=== PATIENT | male | born 1945 | race Caucasian/White ===

== ENCOUNTER 2016-05-11 10:22 | Outpatient (CLI) | payer OTHER ==
[2016-03-25 18:45] VITALS: BP 136/69
[2016-05-11 10:47] LABS: MEAN CORPUSCULAR HEMOGLOBIN 29.1 pg (28.0-34.0)
[2016-05-11 11:05] LABS: MONOCYTES % 1 % (0-11); SEGMENTED NEUTROPHILS % 92 % (39-79)
[2016-05-11 15:24] LABS: TOTAL PROTEIN 5.2 g/dL (6.0-8.5)
== END 2016-05-11 10:32 ==
LOC: LAB 10:22
PROVIDERS: ATTEND Internal Medicine Gastroenterology
DX: K74.60 Unspecified cirrhosis of liver (principal)
CPT/HCPCS: 36415; 80053; 85025

== ENCOUNTER 2016-05-20 09:57 | Observation (INO) | payer OTHER ==
[2016-05-20 10:14] LABS: EOSINOPHILS % 1.1 % (0.0-6.8); LYMPHOCYTES # 0.6 # k/uL (0.6-4.0); MEAN CORPUSCULAR HEMOGLOBIN 29.5 pg (28.0-34.0); MONOCYTES # 0.2 # k/uL (0.0-0.9); MONOCYTES % 4.1 % (0.0-11.0); NEUTROPHILS # 4.8 # k/uL (1.4-7.7)
[2016-05-20 10:26] LABS: eGFR (African) 11; eGFR (Non-African) 9
--- NOTE | 2016-05-20 17:27 | History and Physical Report ---
History of Present Illnes - History of Present Illness Reason for Visit: dehydration History of Present Illness: 70yo white male with a history of liver failure with ascites. He recently seen by Dr Slaughter and was found to be dehydrated with a creatinine in the 5s. He has given 1 liter of NS and advised to try to drink more. Patient is on a 2gm Na restricted diet and 2000ml fluid restriction. His spouse states that he has not been eating or drinking enough to meet his restriction limits. Has been trying to get him to eat more. He has been losing muscle mass and states that he has been getting weaker. He has been somewhat depressed but has no suicidal thoughts. Patients ascites has been stable with stable abd girth. Patient has been having some pedal edema and has been having some weeping in the RLE. - Past Medical History Hepatobiliary: Cirrhosis (EtOHic liver failure. ) Psych: Depression - Past Surgical History Past Surgical History: Other (ORIF right hip fracture, cataaract extraction OU, 3 back surgeries), Total Knee Replacement (left) - Past Family History Mother Family History: (96yo COPD) Father Family History: CAD, (60yo ) - Past Social History Smoke: Quit Alcohol: None (use to drink moderately) Drugs: None Lives: With Family Domestic Violence: Negative - Health Maintenance Health Maintenance: Influenza Vaccine. denies: Cholesterol, Tetanus Influenza Vaccine: Current for this Influenza Season Pneumonia Vaccine: Yes Resuscitation Status: limited code - Unable to Obtain History Unable to Obtain: No Review of Systems - Review of Systems Constitutional: Weakness, Malaise. negative: Fever, Chills Eyes: negative: pain, vision change ENT: negative: Ear Pain, Ear Discharge, Nose Discharge, Nose Congestion, Throat Pain, Throat Swelling Respiratory: Cough, Dry, Shortness of Breath (mild), SOB with Excertion. negative: Hemoptysis, Wheezing Cardiovascular: Orthopnea (mild). negative: Chest Pain, Palpitations Gastrointestinal: Other (marked ascites). negative: Nausea, Vomiting, Abdominal Pain, Diarrhea, Melena, Hematochezia Genitourinary: negative: Dysuria, Frequency Musculoskeletal: Back Pain Skin: negative: Rash, Lesions Neurological: Weakness (generalized). negative: Numbness, Seizures - Medications/Allergies Allergies/Adverse Reactions: Allergies Allergy/AdvReac Type Severity Reaction Status Date / Time No Known Allergies Allergy Verified 05/20/16 17:02 Home Medications: Home Medications Aspirin [Marybel] 81 mg PO DAILY 05/20/16 Bethanechol Chloride [Urecholine] 25 mg PO AC30 05/20/16 Citalopram Hydrobromide [Citalopram HBr] 20 mg PO D 05/20/16 Furosemide [Lasix] 20 mg PO DAILY 05/20/16 Omeprazole [Prilosec] 40 mg PO 717 05/20/16 Spironolactone [Aldactone] 50 mg PO DAILY 05/20/16 Tamsulosin HCl [Flomax] 0.4 mg PO [id number] 05/20/16 Tramadol HCl [Ultram] 50 mg PO TID PRN 05/20/16 Current Inpatient Medications: Current Inpatient Medications Sodium Chloride (Normal Saline) 1,000 mls @ 1,000 mls/hr IV Q10H KAYLA Sodium Chloride (Normal Saline) 1,000 mls @ 125 mls/hr IV .Q10H KAYLA Sodium Chloride (Normal Saline Flush) 3 ml IV BID KAYLA Exam - Exam General: Alert, Oriented to Person, Oriented to Place, Oriented to Time, Cooperative, No acute distress HEENT: Atraumatic, Decreased Hearing Acuity. No: Mouth Mucous membr. moist/ [place] (dry), Nose Mucous membr. moist/[place] (ry) Neck: Normal Range of Motion, Lymphadenopathy. No: Stridor, Rigidity Carotids: WNL Thyroid: WNL Lungs: Clear to auscultation, Normal air movement, Speaks full Sentences. No: Wheezes, Rales, Rhonchi Cardiovascular: Regular rate, Normal S1, Normal S2, No murmurs. No: Gallops, Rubs Abdomen: Normal bowel sounds, Soft, No tenderness, Other (marked ascites), Hepatomegaly Integumentary: Normal, [place], Warm Extremities: No clubbing, Other (3 plus edema) Neurological: Normal speech, Strength Equal Bilat, Normal tone, Sensation intact , Cranial nerves 3-12 NL Psych/Mental Status: Mental status NL, Appropriate Affect, Intact Judgment. No : Mood NL (depressed) - Laboratory Results Laboratory Results: Laboratory Results 05/20/16 05/20/16 10:00 10:00 WBC 5.90 RBC 3.86 L Hgb 11.4 L Hct 36.2 L MCV 93.6 MCH 29.5 MCHC 31.5 RDW 13.9 Plt Count 74 L Neut % (Auto) 82.3 H Lymph % (Auto) 10.6 L [place] % (Auto) 4.1 Eos % (Auto) 1.1 Baso % (Auto) 0.0 Neut # 4.8 Lymph # 0.6 [place] # 0.2 Eos # 0.1 Baso # 0.0 Reactive Lymphs % 1.9 Reactive Lymphs # 0.1 Sodium 130 L Potassium 3.6 Chloride 94 L Carbon Dioxide 23 BUN 74 H Creatinine 6.4 H Est GFR ( Amer) 11 L Est GFR (Non-Af Amer) 9 L Glucose 104 H Calcium 8.1 L Total Bilirubin 1.1 AST 27 ALT 14 Alkaline Phosphatase 156 H Total Protein 5.3 L Albumin 2.9 L Assessment/Plan - Assessment/Plan (1) Dehydration Status: Acute Current Visit: Yes Assessment: BUN and Creatinine are elevated (2) Cirrhosis Status: Chronic Current Visit: Yes Qualifiers: Hepatic cirrhosis type: alcoholic cirrhosis Ascites presence: with ascites Qualified Code(s): K70.31 - Alcoholic cirrhosis of liver with ascites (3) Liver failure Status: Chronic Current Visit: Yes Qualifiers: Liver failure chronicity: chronic Hepatic coma status: without hepatic coma Qualified Code(s): K72.10 - Chronic hepatic failure without coma Comment: Gilbert's syndrome (4) Failure to thrive Status: Acute Current Visit: Yes Assessment: Patient is losing lean muscle mass (5) Depression Status: Acute Current Visit: Yes Qualifiers: Psychotic features: without psychotic features VTE Assessment - RISK FACTOR SCORE VTE RISK FACTOR SCORES: AGE OVER 60 YEARS, LEG SWELLING, ULCERS, VARICOSE VEINS - RISK VTE MODERATE RISK: SCORE OF 2 (RISK PROXIMAL DVT 2-4%) PROPHYAXIS NEEDED
[2016-05-20] MEDS ORDERED: 0.9 % SODIUM CHLORIDE 1,000 ML IV SCH (17:30)
[2016-05-20 17:58] VITALS: BMI 26.4
[2016-05-20] MEDS ORDERED: traMADol HCL 50 MG TABLET PO PRN (18:59)
[2016-05-20] MEDS ORDERED: TAMSULOSIN HCL 0.4 MG CAP.ER.24H PO SCH (19:00)
[2016-05-20] MEDS: 0.9 % SODIUM CHLORIDE 1,000 ML IV SCH (19:25)
[2016-05-20] MEDS ORDERED: SALINE FLUSH 10 ML DISP.SYRIN IV SCH (21:00)
[2016-05-21] MEDS ORDERED: ASPIRIN EC 81 MG TABLET.DR ONE (03:24)
[2016-05-21] MEDS: 0.9 % SODIUM CHLORIDE 1,000 ML IV SCH ×2 (03:59→12:57)
[2016-05-21] MEDS ORDERED: SALINE FLUSH 10 ML DISP.SYRIN IVF SCH (09:00)
[2016-05-21] MEDS ORDERED: SPIRONOLACTONE 25 MG TABLET PO SCH (09:00)
[2016-05-21] MEDS ORDERED: CITALOPRAM HYDROBROMIDE 20 MG TABLET PO SCH (09:00)
[2016-05-21] MEDS ORDERED: TRIAMTERENE/HCTZ 1 EACH CAP PO SCH (09:00)
[2016-05-21] MEDS ORDERED: ASPIRIN 81 MG CHEW TAB PO SCH (09:00)
[2016-05-21] MEDS ORDERED: 0.9 % SODIUM CHLORIDE 1,000 ML IV SCH (11:28)
--- NOTE | 2016-05-21 16:22 | Discharge Summary ---
Discharge Summary - Discharge Sumary Additional Instructions: 70yo white male with a history of liver failure with ascites. He recently seen by Dr Slaughter and was found to be dehydrated with a creatinine in the 5s. He has given 1 liter of NS and advised to try to drink more. Patient is on a 2gm Na restricted diet and 2000ml fluid restriction. His spouse states that he has not been eating or drinking enough to meet his restriction limits. Has been trying to get him to eat more. He has been losing muscle mass and states that he has been getting weaker. He has been somewhat depressed but has no suicidal thoughts. Patients ascites has been stable with stable abd girth. Patient has been having some pedal edema and has been having some weeping in the RLE. Home Medications: Ambulatory Orders Medication Instructions Recorded Aspirin [Marybel] 81 mg PO DAILY 05/20/16 Bethanechol Chloride [Urecholine] 25 mg PO AC30 05/20/16 Citalopram Hydrobromide 20 mg PO D 05/20/16 [Citalopram HBr] Furosemide [Lasix] 20 mg PO DAILY 05/20/16 Omeprazole [Prilosec] 40 mg PO 717 05/20/16 Spironolactone [Aldactone] 50 mg PO DAILY 05/20/16 Tamsulosin HCl [Flomax] 0.4 mg PO [id number] 05/20/16 Tramadol HCl [Ultram] 50 mg PO TID PRN 05/20/16 Consultations this Visit: None Allergies/Adverse Reactions: Allergies Allergy/AdvReac Type Severity Reaction Status Date / Time No Known Allergies Allergy Verified 05/20/16 17:02 Discharge Summary: Patient was started on IV therapy of NS. Patient was given a bolus of 1000cc NS then started on 125cc/hr drip. Patient weight was monitored and he did gain 3 kg during the hospital stay. His BUN and creatinine did improve to 70 and 6.1 respectively. Patient continue to be weak - Final Diagnosis (1) Dehydration Problems: improved (2) Cirrhosis Problems: critical (3) Liver failure Problems: critical (4) Failure to thrive Problems: Patient states the he does not want anything to eat (5) Depression Problems: stable (6) Renal failure Problems: Patient appears to have hepatic renal failure. Will refer to Dr Nazario
[2016-05-21 17:51] VITALS: BP 129/62
== END 2016-05-21 16:55 | disposition home or self-care (01) ==
LOC: LAB 09:57 → SOUTH 16:27
PROVIDERS: ADMIT Family Medicine; ATTEND Family Medicine
DX: E86.0 Dehydration (principal); K74.60 Unspecified cirrhosis of liver; K72.90 Hepatic failure, unspecified without coma; R62.7 Adult failure to thrive; F32.9 Major depressive disorder, single episode, unspecified; N19 Unspecified kidney failure
CPT/HCPCS: 36415; 80048; 80053; 85025; G0378; J7030; 96361; 96374; 96375; 99284; S1016